=== PATIENT | male | born 1995 ===

== ENCOUNTER 2019-10-04 16:10 | Observation (INO) ==
[2019-10-04] MEDS ORDERED: Ondansetron 4 mg VIAL 2 MG/ML 2 ml VIAL IV ONE (16:18)
[2019-10-04] MEDS ORDERED: NS 0.9% 1000 ml BAG 1,000 ML IV ONE ×2 (16:18→17:54)
[2019-10-04 16:57] LABS: ABS Monocytes 0.7 10^3/ul (0-0.8); Hematocrit 47 % (42-52); Hemoglobin 16.2 g/dL (14.0-18.0); Mean Corpuscular HGB Conc 35 g/dL (31-36); Mean Corpuscular Hemoglobin 29 pg (27-31); Mean Corpuscular Volume 85 fL (80-94); Mean Platelet Volume 9.1 fL (7.4-10.4); Nucleated Red Blood Cells % 0.1; Platelet Count 242 10^3/uL (150-450); Red Blood Count 5.51 10^6 /uL (4.18-5.48); Red Cell Distribution Width 13 % (10-15); White Blood Count 19.5 10^3/uL (3.5-10.8)
[2019-10-04 17:14] LABS: ALT 109 U/L (7-52); AST 44 U/L (13-39); Albumin 4.9 g/dL (3.2-5.2); Albumin/Globulin Ratio 1.4 (1-3); Alkaline Phosphatase 59 U/L (34-104); Anion Gap 13 mmol/L (2-11); BUN/Creatinine Ratio 21.5 (8-20); Blood Urea Nitrogen 17 mg/dL (6-24); C Reactive Protein 6.24 mg/L (<8.01); CO2 Carbon Dioxide 23 mmol/L (22-32); Calcium 10.2 mg/dL (8.6-10.3); Chloride 100 mmol/L (101-111); EGFR African American 145.8 (>60); EGFR Non-African American 120.5 (>60); Globulin 3.6 g/dL (2-4); Glucose 145 mg/dL (70-100); Potassium 3.8 mmol/L (3.5-5.0); Sodium 136 mmol/L (135-145); Total Protein 8.5 g/dL (6.4-8.9)
[2019-10-04] MEDS ORDERED: Iohexol 300 (CONTRAST) 10 ML SDV IV ONE (17:55)
[2019-10-04] MEDS ORDERED: Piperacillin/Tazobac ADVAN(*) 3.375 GM in NS 0.9% 100 ml BAG 100 ML IVPB ONE (18:44)
[2019-10-04] MEDS ORDERED: Ondansetron 4 mg VIAL 2 MG/ML 2 ml VIAL IV PRN (20:31)
[2019-10-04] MEDS: NS 0.9% 1000 ml BAG 1,000 ML IV SCH (21:54)
[2019-10-04] MEDS ORDERED: HYDROmorphone 0.5 MG/0.5 ML SYRINGE IV SLOW PU PRN (21:55)
[2019-10-04] MEDS: Piperacillin/Tazobactam VIAL*) 3.375 GM in NS 0.9% 100 ml BAG 100 ML IVPB SCH (23:55)
[2019-10-05] MEDS ORDERED: Bupivacaine 0.25% w/EPI 10 ML SDV ONE (01:49)
[2019-10-05] MEDS ORDERED: HYDROmorphone 1 MG/1 ML SYRINGE IV PRN (02:20)
[2019-10-05] MEDS ORDERED: Acetaminophen IV 1 GM/100ML 1,000 MG/100 ML VIAL IVPB ONE (02:20)
[2019-10-05] MEDS ORDERED: fentaNYL 100 mcg/2 ml 50 MCG/ML VIAL IV PRN (02:20)
[2019-10-05] MEDS ORDERED: DiMENhydriNATE IV 50 mg/ml 1 ml VIAL IV PUSH PRN (02:20)
[2019-10-05] MEDS ORDERED: Ondansetron 4 mg VIAL 2 MG/ML 2 ml VIAL IV PRN (02:20)
[2019-10-05] MEDS ORDERED: Naloxone 0.4 mg VIAL 0.4 mg/ml 1 ml VIAL IV PRN (02:20)
[2019-10-05] MEDS ORDERED: fentaNYL 100 mcg/2 ml 50 MCG/ML VIAL ONE ×2 (02:29→03:13)
[2019-10-05] MEDS ORDERED: Midazolam 2 mg/2 ml VIAL 1 mg/ml 2 ml VIAL (2 mg) ONE (02:30)
[2019-10-05] MEDS ORDERED: oxyCODONE/Acetamin 5/325 mg TAB PO PRN (05:59)
[2019-10-05] MEDS: NS 0.9% 1000 ml BAG 1,000 ML IV SCH (06:17)
[2019-10-05 07:30] VITALS: BP 107/61
[2019-10-05] MEDS: Piperacillin/Tazobactam VIAL*) 3.375 GM in NS 0.9% 100 ml BAG 100 ML IVPB SCH (09:01)
== END 2019-10-05 09:25 | disposition home or self-care (01) ==
LOC: ED 16:10 → SSU 16:10
PROVIDERS: ADMIT Surgery; ATTEND Surgery